=== PATIENT | female | born 1980 | race Caucasian/White ===

== ENCOUNTER 2021-04-22 11:32 | Emergency (ER) | payer OTHER ==
[~2021-04-22] VITALS: Ht 157 cm; Wt 98.0 kg
[2021-04-22 11:45] VITALS: BP 143/80
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
--- NOTE | 2021-04-22 12:37 | Diagnostic Imaging Report ---
INDICATION: Head injury and pain TECHNIQUE: Multiple contiguous axial images were obtained through the brain without the use of intravenous contrast. Auto Exposure Controls were utilized during the CT exam to meet ALARA standards for radiation dose reduction. FINDINGS: The ventricles and sulci are within normal limits for size. There is no intracranial hemorrhage identified. There is no abnormal mass effect or shift of midline structures. IMPRESSION: Unremarkable CT of the head. Dictated by: Dictated on workstation # [id number]
[2021-04-22] MEDS ORDERED: BUTA1CAP41 PO (12:54)
[2021-04-22] MEDS ORDERED: KETOROLAC 60 MG/2 ML VIAL IM ONE (13:00)
== END 2021-04-22 13:07 | disposition home or self-care (01) ==
LOC: ER 11:35
DX: S06.0X0A Concussion without loss of consciousness, initial encounter (principal); R40.2410 Glasgow coma scale score 13-15, unspecified time; W22.8XXA Striking against or struck by other objects, initial encounter
CPT/HCPCS: 70450